=== PATIENT | female | born 1980 | race Caucasian/White ===

== ENCOUNTER → 2020-03-29 | Outpatient (CLI) | payer BC ==
[~2020-03-29] MED LIST: HCT25T PO; IBP800T PO; NEBI2.5T5 PO; PHEN37.555 PO; yaz PO
== END ==
LOC: LABNPT 08:22
PROVIDERS: ATTEND Physician Assistant
DX: R05 Cough (principal); R53.83 Other fatigue; R51.9 Headache, unspecified; R11.0 Nausea; Z20.828 Contact with and (suspected) exposure to other viral communicable diseases
CPT/HCPCS: 87635

== ENCOUNTER → 2020-12-01 | Outpatient (CLI) | payer BC | LOC: LABNPT 06:40 | PROVIDERS: ATTEND Internal Medicine | DX: R05 Cough (principal); R09.81 Nasal congestion; R51.9 Headache, unspecified; Z20.822 Contact with and (suspected) exposure to COVID-19 | CPT/HCPCS: 87636 ==

== ENCOUNTER → 2021-09-18 | Outpatient (CLI) | payer BC ==
--- NOTE | 2021-09-18 12:54 | Diagnostic Imaging Report ---
INDICATION: Injury to the left ankle. TIME OF EXAM: 11:55 a.m. FINDINGS: Three views of the left ankle were obtained. There is significant soft tissue swelling about the lateral ankle. Ankle mortise is well maintained. Talar dome is smooth. No fracture or dislocation is seen. IMPRESSION: Lateral soft tissue swelling. No acute bony abnormality is detected. Dictated by: Dictated on workstation # [id number]
== END ==
LOC: RAD 11:38
PROVIDERS: ATTEND Family Medicine
DX: S99.912A Unspecified injury of left ankle, initial encounter (principal)
CPT/HCPCS: 73610

== ENCOUNTER → 2023-03-08 | Outpatient (CLI) | payer BC ==
--- NOTE | 2023-03-11 14:55 | Diagnostic Imaging Report ---
EXAMINATION: 3D bilateral screening mammogram with CAD. INDICATION: Screening. COMPARISON: This is the patient's baseline study. PERSONAL HISTORY: At this time, there are no current complaints. FINDINGS: The fibroglandular tissue in both breasts is heterogeneously dense. This does limit the sensitivity of this exam. There is no primary or secondary sign of malignancy noted. IMPRESSION: 1. There is no evidence for malignancy. 2. The patient should have her annual bilateral screening mammogram on schedule in March 2024. ACR BI-RADS Category 1: Negative. Result letter will be mailed to the patient. Note: At least 10% of breast cancer is not imaged by mammography. Dictated by: Dictated on workstation # [id number]
== END ==
LOC: RAD 15:09
PROVIDERS: ATTEND Family Medicine
DX: Z12.31 Encounter for screening mammogram for malignant neoplasm of breast (principal)
CPT/HCPCS: 77063; 77067